=== PATIENT | female | born 1995 | race Caucasian/White ===

== ENCOUNTER 2022-03-17 06:31 | Emergency (ER) | payer BC ==
[~2022-03-17] VITALS: Ht 152.4 cm; Wt 47.6 kg
[2022-03-17] MEDS ORDERED: LORAZEPAM 2 MG/1 ML VIAL IV ONE (06:45)
[2022-03-17] MEDS ORDERED: LORAZEPAM 2 MG/1 ML VIAL ONE (06:55)
--- NOTE | 2022-03-17 07:06 | NUR ---
Patient to room #5, assisted into gown and placed on monitor. No s/s of any distress noted at this time. #22g established in left ac area, medicated as per order.
[2022-03-17 07:12] LABS: HEMATOCRIT 38.1 % (31.2-41.9); MEAN CORPUSCULAR HEMOGLOBIN 31.5 uug (24.7-32.8); MEAN CORPUSCULAR VOLUME 92.3 fL (75.5-95.3); PLATELET COUNT (AUTO) 245 K/uL (179-408)
[2022-03-17 07:28] LABS: CARBON DIOXIDE 28 mmol/L (21-32); CHLORIDE 105 mmol/L (98-107); CREATININE 0.8 mg/dL (0.6-1.3); GLUCOSE 115 mg/dL (74-106); POTASSIUM 3.6 mmol/L (3.5-5.1); UREA NITROGEN, BLOOD 11 mg/dL (7-18)
[2022-03-17 07:43] LABS: ALANINE AMINOTRANSFERASE 33 U/L (14-59); ALKALINE PHOSPHATASE 52 U/L (50-136); ASPARTATE AMINOTRANSFERASE 32 U/L (15-37); BILIRUBIN,TOTAL 0.4 mg/dL (0.2-1.0); TOTAL PROTEIN, SERUM 7.2 g/dL (6.4-8.2)
[2022-03-17 08:58] LABS: *BILIRUBIN,URIN NEGATIVE (NEGATIVE); *BLOOD, URINE NEGATIVE (NEGATIVE); *CLARITY,URINE CLEAR (CLEAR); *COLOR,URINE YELLOW (YELLOW); *KETONES,URINE 2+ (NEGATIVE); *UROBILINOGEN,URINE 0.2 E.U./dl (NORMAL); LEUKOCYTE ESTERASE ,URINE NEGATIVE (NEGATIVE); NITRITE, URINE NEGATIVE (NEGATIVE); PH,URINE 7.5 (5.0-8.0); UGLUCOSE NEGATIVE (NEGATIVE)
--- NOTE | 2022-03-17 09:04 | NUR ---
Pt sleeping, easy to arouse, no complaints, no distress noted. Obtained urine sample and taken to lab.
[2022-03-17 11:33] VITALS: BP 101/64
--- NOTE | 2022-03-17 11:35 | NUR ---
Removed IV intact, site okay, bandaged. Gave pt d/c instructions, pt verbalized understanding.
== END 2022-03-17 11:36 | disposition home or self-care (01) ==
LOC: ER 06:56
DX: R00.0 Tachycardia, unspecified (principal); F41.9 Anxiety disorder, unspecified; R42 Dizziness and giddiness; R20.0 Anesthesia of skin
CPT/HCPCS: 99284; 96374; 80053; 81003; 85025; 85379; 84484 ×2; 84702; 36415; 93005; J2060; A4663